=== PATIENT | female | born 1945 | race Caucasian/White ===

== ENCOUNTER → 2016-10-18 | Outpatient (CLI) | payer MEDICARE, MEDICAID ==
[~2016-10-18] MED LIST: ADENOSINE 57 MG in GIVE UN-DILUTED 0 ML IV ONE; ADENOSINE 90 MG/30 ML INJ IV ONE; AML5T PO; ASPI81TA27 PO; ATOR80TA PO; BENA20TA PO; CLOP75TA28 PO; FURO20TA PO; LORA-622 PO; POT10T PO; TRAM-297 PO; TRIA75TA55 PO
== END | disposition home or self-care (01) ==
LOC: Rad HDHVI 08:11
PROVIDERS: ATTEND Internal Medicine Cardiovascular Disease
DX: I10 Essential (primary) hypertension (principal); E78.00 Pure hypercholesterolemia, unspecified; R06.02 Shortness of breath; I73.9 Peripheral vascular disease, unspecified
CPT/HCPCS: 78452; 93005; 93306; 93926; 96374; 96375; A9500; J0153

== ENCOUNTER → 2016-12-18 | Outpatient (CLI) | payer MEDICARE, MEDICAID ==
[~2016-12-18] MED LIST changes: -ADENOSINE 57 MG in GIVE UN-DILUTED 0 ML IV ONE; -ADENOSINE 90 MG/30 ML INJ IV ONE
[2016-12-18 10:30] VITALS: BP 166/82
[2016-12-18 12:35] LABS: Basophils # (auto) 0 uL; Basophils % (auto) 0.4 % (0.0-2.0); CONDITION Y; DEFINITIVE SEE PRINTOUT; Eosinophils # (auto) 0.3 uL; Eosinophils % (auto) 4.8 % (0.0-7.0); Hematocrit 26.3 % (36.0-46.0); Hemoglobin 8.6 g/dL (12.2-16.2); Lymphocytes # (auto) 1.8 uL; Lymphocytes % (auto) 30.5 % (10.0-50.0); Mean Corpuscular Hemoglobin 26.7 pg (28.0-32.0); Mean Corpuscular Hgb Conc. 32.8 g/dL (32.0-36.0); Mean Corpuscular Volume 81.2 fL (80.0-100.0); Mean Platelet Volume 7.7 fL (7.4-10.4); Monocytes # (auto) 0.4 uL; Monocytes % (auto) 6.6 % (0.0-12.0); Neutrophils # (auto) 3.3 uL; Neutrophils % (auto) 57.7 % (37.0-80.0); Platelet Count (auto) 262 10^3/uL (140-450); Red Cell Distribution Width 15.8 % (11.6-16.0); White Blood Cell 5.8 10^3/uL (4.4-10.8)
[2016-12-18 12:47] LABS: INR 0.94 (0.9-1.15); Partial Thromboplastin Time 27.8 sec (22.64-33.71); Prothrombin Time 10.2 sec (9.37-12.3)
[2016-12-18 13:19] LABS: BUN/Creatinine Ratio 21.8; Calcium 7.7 mg/dL (8.5-10.1); Potassium 4.2 mmol/L (3.5-5.1)
[2016-12-18 14:03] VITALS: BP 172/86
[2016-12-18 14:05] VITALS: BP 172/86
== END | disposition home or self-care (01) ==
LOC: Rad HDHVI 09:52
PROVIDERS: ATTEND Internal Medicine Cardiovascular Disease
DX: I10 Essential (primary) hypertension (principal); D64.9 Anemia, unspecified; R79.1 Abnormal coagulation profile; Z01.812 Encounter for preprocedural laboratory examination
CPT/HCPCS: 36415; 71020; 80048; 85025; 85610; 85730; 93005; G0463